=== PATIENT | female | born 1995 | race Caucasian/White ===

== ENCOUNTER 2019-03-06 02:03 | Emergency (ER) | payer OTHER ==
[~2019-03-06] VITALS: Ht 165.1 cm; Wt 66.2 kg
--- NOTE | 2019-03-06 02:08 | NUR ---
PT BIBRA FOR XANAX OVERDOSE. PT IS SOMNOLENT, RESPONSIVE TO NAME. A/OX2. PLACED ON 2LPM O2 VIA NC, BREATHING EVEN AND UNLABORED. IN NO ACUTE DISTRESS. IV ACCESS ESTABLISHED PRIOR TO ARRIVAL TO LEFT HAND #18. PLACED ON RN ACUTE DIALYSIS
[2019-03-06 02:28] LABS: CALCIUM, SERUM 8.4 mg/dL (8.5-10.1); CREATININE 0.7 mg/dL (0.6-1.3); POTASSIUM 3.4 mmol/L (3.5-5.1)
[2019-03-06 02:29] LABS: BASOPHILS % (AUTO) 0.8 % (0.0-2.0); EOSINOPHILS % (AUTO) 2.2 % (0.0-6.0); HEMATOCRIT 35 % (33-45); HEMOGLOBIN 11.6 g/dL (11.5-14.8); LYMPHOCYTES # (AUTO) 2.6 /CMM (0.8-4.8); LYMPHOCYTES % (AUTO) 47.9 % (20.0-44.0); MEAN CORPUSCULAR HGB CONC 33 g/dl (31.0-36.0); MEAN CORPUSCULAR VOLUME 89 fL (82-100); MONOCYTES # (AUTO) 0.4 /CMM (0.1-1.30); MONOCYTES % (AUTO) 6.7 % (2.0-12.0); NEUTROPHILS # (AUTO) 2.3 /CMM (1.8-8.9); NEUTROPHILS % (AUTO) 42.4 % (43.0-81.0); PLATELET COUNT (AUTO) 279 /CMM (150-450); RED BLOOD CELL COUNT(AUTO) 3.91 MIL/uL (4.0-5.2); WHITE BLOOD COUNT (AUTO) 5.4 K/uL (4.3-11.0)
[2019-03-06 02:33] LABS: ALBUMIN 3.4 g/dL (3.4-5.0); BILIRUBIN,TOTAL 0.1 mg/dL (0.2-1.0); TOTAL PROTEIN, SERUM 6.5 g/dL (6.4-8.2)
--- NOTE | 2019-03-06 02:34 | NUR ---
URINE COLLECTED VIA STRAIGHT CATH AND SENT TO LAB
[2019-03-06 02:37] LABS: APPEARANCE,URINE Clear (CLEAR); BILIRUBIN,URINE Negative (NEGATIVE); BLOOD, URINE Negative Ery/uL (NEGATIVE); COLOR,URINE Yellow (YELLOW); KETONES,URINE Negative (NEGATIVE); LEUKOCYTE ESTERASE ,URINE Negative (NEGATIVE); NITRITE, URINE Negative (NEGATIVE); PH,URINE 5.5 (5.0-8.0); PROTEIN,URINE Negative (NEGATIVE); UGLUCOSE Negative (NEGATIVE); UROBILINOGEN,URINE 0.2 EU/dL (0.2)
[2019-03-06] MEDS ORDERED: IV NS 0.9% 1,000 ML IV PRN ×2 (03:00)
--- NOTE | 2019-03-06 03:20 | NUR ---
Ryan Rodriges - Friend,
[2019-03-06 04:23] LABS: CALCIUM, SERUM 7.4 mg/dL (8.5-10.1); CREATININE 0.6 mg/dL (0.6-1.3); POTASSIUM 3.3 mmol/L (3.5-5.1)
--- NOTE | 2019-03-06 06:10 | NUR ---
Karel [facility] called.
--- NOTE | 2019-03-06 06:12 | NUR ---
PT ASLEEP, RESPONSIVE TO NAME/TACTILE STIMULI. PT IS A/OX3. REMAINS ON 2LPM O2 VIA NC, BREATHING EVEN AND UNLABORED. IN NO ACUTE DISTRESS. WILL CONTINUE TO MONITOR
[2019-03-06] MEDS ORDERED: POTASSIUM CHLORIDE 20 MEQ POWDER PACKET PO ONE (06:30)
[2019-03-06] MEDS ORDERED: POTASSIUM CHLORIDE 20 MEQ TAB.PRT.SR PO ONE (06:30)
[2019-03-06] MEDS ORDERED: POTASSIUM CHLORIDE 20 MEQ POWDER PACKET ONE (06:30)
--- NOTE | 2019-03-06 06:54 | NUR ---
PT AMBULATED TO RESTROOM WITH MINIMAL ASSIST. ESCORTED BACK TO BED.
--- NOTE | 2019-03-06 07:14 | NUR ---
BEDSIDE REPORT GIVEN TO DAY SHIFT RN FOR ERIKA
--- NOTE | 2019-03-06 07:47 | NUR ---
REPORT RECEIVED FROM [facility] CHILDRESS. PATIENT RECEIVED RESTING INSIDE ROOM. AWAKE, ALERT AND ORIENTED X 3, NO ACUTE DISTRESS. CONNECTED TO MONITOR. NO C/O PAIN OR DISCOMFORT. SAFETY PRECAUTIONS IN PLACE. WILL CONTINUE TO MONITOR
--- NOTE | 2019-03-06 08:43 | NUR ---
BLENDER/BRAZE APPLICATOR NOTIFIED, ETA 1 HOUR.
--- NOTE | 2019-03-06 11:48 | NUR ---
[facility], PT IS PENDING BED ASSIGNMENT
--- NOTE | 2019-03-06 12:07 | NUR ---
RECEIVED PHONE CALL FROM EM FROM [facility]. REQUESTING INFORMATION AND HOLD TO BE FAXED TO [phone] FOR [facility]
--- NOTE | 2019-03-06 12:17 | NUR ---
FAXED FACESHEET AND CLINICALS TO [facility]
--- NOTE | 2019-03-06 14:34 | NUR ---
TRANSFER INFO: ESTELLE MUNIZ AT [facility] ACCEPTED BY Kenya JORDAN, AT [facility] [address]. RN FOR REPORT [phone] ETA [phone]
[2019-03-06 14:43] VITALS: BP 101/42
--- NOTE | 2019-03-06 14:49 | NUR ---
PATIENT RESTING INSIDE ROOM. NO ACUTE DISTRESS. SLEEPING, EASILY AROUSABLE THROUGH VERBAL AND TACTILE STIMULI. MADE AWARE OF MARTINEZ TRANSFER AND TIME AND VERBALIZED UNDERSTANDING. PATIENT DENIES SI/HI AT THIS TIME. WILL CONTINUE TO MONITOR
--- NOTE | 2019-03-06 14:52 | NUR ---
placed call to [facility] ([phone]) and gave report to Barbara CHILDRESS
--- NOTE | 2019-03-06 15:39 | NUR ---
PATIENT CLEARED FOR DISCHARGE BY DR BLACKMON. DR MOLINA PRESENT AT UNIT, ALSO AWARE. TRANSFER INFORMATION AND EDUCATION PROVIDED TO PATIENT AND VERBALIZED UNDERSTANDING. IV REMOVED, TIP INTACT, PRESSURE DRESSING PLACED ON SITE. NO NEW SKIN BREAKDOWN NOTED ON DISCHARGE. PATIENT LEFT UNIT BY AMBULANCE TRANSPORTATION IN STABLE CONDITION. NO ACUTE DISTRESS. DENIES ANY PAIN OR DISCOMFORT. AWARE
== END 2019-03-06 15:43 ==
LOC: ER 02:08
DX: T42.4X2A Poisoning by benzodiazepines, intentional self-harm, initial encounter (principal); Y92.89 Other specified places as the place of occurrence of the external cause
CPT/HCPCS: 36415; 80048 ×2; 80076; 80305; 80307; 80329; 81001; 84703; 85025; 99285; G0480; J7030 ×2; 81000-TC

== ENCOUNTER 2019-05-18 17:21 | Emergency (ER) | payer OTHER ==
[~2019-05-18] VITALS: Ht 167.6 cm; Wt 65.8 kg
[2019-05-18] MEDS ORDERED: ACETAMINOPHEN 325 MG TABLET PO ONE (18:00)
[2019-05-18] MEDS ORDERED: ACETAMINOPHEN ES 500 MG TABLET ONE (18:11)
--- NOTE | 2019-05-18 18:23 | NUR ---
Patient awake alert shes on the phone talking noted able to ambulated to bathroom urine obtained and send to lab
--- NOTE | 2019-05-18 19:27 | NUR ---
PT RECEIVED IN BED AAOX4. NO RESP DISTRESS NOTED. PT IS ON HER WAY TO CT ON WHEELCHAIR.
[2019-05-18] MEDS ORDERED: IV NS 0.9% 1,000 ML BAG IV ONE (19:30)
--- NOTE | 2019-05-18 19:55 | NUR ---
pt complained of hip pain and r leg pain. md made aware.
--- NOTE | 2019-05-18 19:56 | NUR ---
ekg done at bedside by emt
[2019-05-18 20:04] LABS: APPEARANCE,URINE CLEAR (CLEAR); BILIRUBIN,URINE NEGATIVE (NEGATIVE); BLOOD, URINE NEGATIVE Ery/uL (NEGATIVE); COLOR,URINE YELLOW (YELLOW); KETONES,URINE NEGATIVE (NEGATIVE); LEUKOCYTE ESTERASE ,URINE NEGATIVE (NEGATIVE); NITRITE, URINE NEGATIVE (NEGATIVE); PROTEIN,URINE NEGATIVE (NEGATIVE); UGLUCOSE NEGATIVE (NEGATIVE); UROBILINOGEN,URINE 0.2 EU/dL (0.2)
[2019-05-18 20:11] LABS: BASOPHILS % (AUTO) 0.3 % (0.0-2.0); EOSINOPHILS % (AUTO) 0.5 % (0.0-6.0); HEMATOCRIT 42 % (33-45); HEMOGLOBIN 13.5 g/dL (11.5-14.8); LYMPHOCYTES # (AUTO) 1.6 /CMM (0.8-4.8); LYMPHOCYTES % (AUTO) 13.8 % (20.0-44.0); MEAN CORPUSCULAR HGB CONC 32 g/dl (31.0-36.0); MEAN CORPUSCULAR VOLUME 91 fL (82-100); MONOCYTES # (AUTO) 0.6 /CMM (0.1-1.30); MONOCYTES % (AUTO) 5.2 % (2.0-12.0); NEUTROPHILS # (AUTO) 9.2 /CMM (1.8-8.9); NEUTROPHILS % (AUTO) 80.2 % (43.0-81.0); PLATELET COUNT (AUTO) 324 /CMM (150-450); RED BLOOD CELL COUNT(AUTO) 4.61 MIL/uL (4.0-5.2); WHITE BLOOD COUNT (AUTO) 11.5 K/uL (4.3-11.0)
--- NOTE | 2019-05-18 20:15 | NUR ---
ORTHOSTATIC BP RESULT RELAYED TO STEPHANIE DIAZ. IV LINE ALOS STARTED, BLOOD DRAWNA DNGIVENT TO GREASE MAN AT BEDSIDE.
[2019-05-18 20:53] LABS: CALCIUM, SERUM 8.8 mg/dL (8.5-10.1); CREATININE 0.7 mg/dL (0.6-1.3); POTASSIUM 3.9 mmol/L (3.5-5.1)
[2019-05-18] MEDS ORDERED: IBUPROFEN 600 MG TABLET PO ONE ×2 (20:53→21:00)
--- NOTE | 2019-05-18 21:50 | NUR ---
Patient discharged to home in stable condition. Written and verbal after care instructions given. Patient verbalizes understanding of instruction. Pt ambulatory with a steady gait. IV removed. Catheter intact and site benign. Pressure and 4x4 applied to site. No bleeding noted.
[2019-05-18 21:54] VITALS: BP 110/67
== END 2019-05-18 21:57 | disposition home or self-care (01) ==
LOC: ER 17:21
DX: S00.83XA Contusion of other part of head, initial encounter (principal); R55 Syncope and collapse; W18.39XA Other fall on same level, initial encounter; Y93.89 Activity, other specified; Y92.89 Other specified places as the place of occurrence of the external cause; Y99.0 Civilian activity done for income or pay
CPT/HCPCS: 36415; 70450; 70486; 80048; 81001; 84703; 85025; 93005; 96360; 99284; J7030; 81000-TC